=== PATIENT | female | born 1995 | race Caucasian/White ===

== ENCOUNTER → 2017-08-29 | Outpatient (CLI) | payer OTHER ==
[2016-03-26 10:20] VITALS: BP 120/78
[~2017-08-29] MED LIST: NORE-69 PO; SERT25TA PO
--- NOTE | 2017-08-29 16:11 | KCIC ---
MR of the left knee Indication: Left knee pain for 10 days. Medial pain. TECHNIQUE: Routine multiplanar sequences are obtained. Technique: The standard multiplanar sequences are obtained. Findings: Medial meniscus:Intact. Lateral meniscus: Intact. Anterior cruciate ligament: Intact Posterior cruciate ligament: Intact Medial collateral ligament: Intact. Iliotibial band: Intact. Posterolateral structures: Fibular collateral ligament, biceps tendon and popliteus tendon are intact. Extensor mechanism: Intact. Fluid: Small joint effusion. Articular cartilage -patellofemoral joint:Intact -medial compartment:Intact -lateral compartment:Intact Bones: Marrow edema or contusion at the medial tibial plateau. There is a faint area of low signal within the edema, suspicious for an incomplete nondisplaced fracture, with mild overlying cortical buckle. Marrow edema identified in the posterior femoral metaphysis, toward the medial side. Soft tissue: Mild soft tissue edema around the abnormal medial tibial plateau. Impression: 1. Findings compatible with an incomplete nondisplaced fracture at the medial tibial plateau. This could be related to repetitive stress, versus recent macro trauma. 2. Mild bone marrow edema within the posterior medial femoral metaphysis, compatible with marrow contusion or stress reaction. Electronically signed by: Venancio Nuñez MD (08/29/2017 4:08 PM) [facility]
== END | disposition home or self-care (01) ==
LOC: KCIC MRI 15:03
PROVIDERS: ATTEND Physician Assistant
DX: M25.562 Pain in left knee (principal); M25.462 Effusion, left knee; R60.0 Localized edema
CPT/HCPCS: 73721

== ENCOUNTER → 2019-09-08 | Outpatient (CLI) | payer OTHER ==
[~2019-09-08] MED LIST changes: +ALBU2.5V8 INH; +LEVO75TA5 PO; +ONDA4TAB12 PO; +OXYC-325 PO; +PREN-2 PO
--- NOTE | 2019-09-08 12:01 | RAD ---
EXAM: Obstetrics sonogram. HISTORY: Absent heart tone. TECHNIQUE: Sonographic imaging of the pelvis was performed. COMPARISON: None. FINDINGS: There is a single intrauterine gestational sac with pole and yolk sac. The crown-rump length is 6.6 mm, corresponding with a gestational age of 6 weeks and 4 days. No cardiac activity is seen. There is echogenic material within the gestational sac. The ovaries demonstrate normal blood flow. There is a 2.1 cm complex right ovarian cyst, likely hemorrhagic in etiology. There is no pelvic free fluid. IMPRESSION: 1. Single intrauterine fetus with an estimated gestational age of 6 weeks and 4 days and absent cardiac activity. If heart tones were previously documented, this is consistent with intrauterine demise. The possibility of absent cardiac activity due to early gestation is unlikely given presence of abnormal echogenic material within the gestational sac and size of the pole. 2. 2.1 cm complex right ovarian cyst, likely hemorrhagic in etiology. Electronically signed by: Ros Beatty MD (09/08/2019 11:58 AM) [facility]
== END | disposition home or self-care (01) ==
LOC: US 10:51 → MERGE 10:51
PROVIDERS: ATTEND Obstetrics & Gynecology
DX: O34.81 Maternal care for other abnormalities of pelvic organs, first trimester (principal); O76 Abnormality in fetal heart rate and rhythm complicating labor and delivery; N83.291 Other ovarian cyst, right side; Z3A.01 Less than 8 weeks gestation of pregnancy
CPT/HCPCS: 76801; 76817

== ENCOUNTER 2019-09-09 07:45 | Day surgery (SDC) | payer OTHER ==
[~2019-09-09] VITALS: Ht 165.1 cm; Wt 89.0 kg
[~2019-09-09 07:45] MED LIST changes: +HYDROmorphone 2 MG/ML VIAL IV PRN; +IV RINGERS,LACTATED 1000ML 1,000 ML IV SCH; +LIDOCAINE 1% PF 2 ML VIAL. ID PRN; +MORPHINE SULFATE 2 MG/ML VIAL. IV PRN; +ONDANSETRON PF 4 MG/2 ML VIAL. IV PRN; -OXYC-325 PO; +PROCHLORPERAZINE 10 MG/2 ML VIAL. IV PRN; +fentaNYL PF VIAL 100 MCG/2 ML VIAL IV PRN
[2019-09-09] MEDS ORDERED: LIDOCAINE 2% PF 5 ML VIAL. ONE (07:58)
[2019-09-09] MEDS ORDERED: PROPOFOL 20 ML IV ONE (07:58)
[2019-09-09] MEDS ORDERED: fentaNYL PF VIAL 100 MCG/2 ML VIAL ONE ×2 (07:59→09:23)
[2019-09-09] MEDS ORDERED: ceFAZolin 2GM PREMIX 2 GM/50 ML BAG IV ONE (08:00)
[2019-09-09] MEDS ORDERED: VASOPRESSIN 20 UNIT/ML VIAL. ONE (08:44)
[2019-09-09] MEDS ORDERED: OXYTOCIN 10 UNIT/ML VIAL. ONE (08:44)
[2019-09-09] MEDS ORDERED: SILVER NITRATE STICK TP ONE (08:45)
[2019-09-09] MEDS ORDERED: SEVOFLURANE 31 TO 60 MINUTES. IH ONE (08:49)
[2019-09-09] MEDS ORDERED: ONDANSETRON PF 4 MG/2 ML VIAL. ONE (08:49)
[2019-09-09] MEDS ORDERED: DEXAMETHASONE SOD PHOS 4 MG/ML VIAL ONE (08:49)
--- NOTE | 2019-09-09 09:16 | PDOC ---
BRIEF OPERATIVE NOTE Date: Sep 09, 2019 Pre-Op Diagnosis MAB Post-Op Diagnosis Same Procedure Performed Suction D&C Surgeon Dr. Jovel Anesthesia Type: General Blood Loss 150 ml Specimens Obtained POC Findings POC Complications none Operative Note see dictation FLOR JOVEL Jr, MD Sep 09, 2019 09:16
--- NOTE | 2019-09-09 09:18 | DISCH ---
DISCHARGE INSTRUCTIONS Condition on Discharge Condition on Discharge: Stable Activity After Discharge Activity Instructions for Disc: Activity as tolerated Lifting Instructions after Dis: No heavy lifting Driving Instructions after Dis: Do not drive today Diet after Discharge Diet after Discharge: Regular Contacting the DRAravind after DC Call your doctor for: Concerns you may have Follow-Up Follow up with: Dr. Jovel in 1 week FLOR JOVEL Jr, MD Sep 09, 2019 09:18
--- NOTE | 2019-09-09 09:23 | OP ---
DATE OF SURGERY: PREOPERATIVE DIAGNOSIS: Missed . POSTOPERATIVE DIAGNOSIS: Missed . PROCEDURE: Suction D and C. SURGEON: Dr. Jovel. ANESTHESIA: GETA. ESTIMATED BLOOD LOSS: 150 mL. COMPLICATIONS: None. FINDINGS: Products of conception. SUMMARY: A 23-year-old 1 at 8 weeks gestation, was found to have missed that measured at 6 weeks' gestation. She was counseled on the risks, benefits and expectations of suction D and C and desired to proceed. DESCRIPTION OF PROCEDURE: The patient was taken to surgery suite and placed in dorsal lithotomy position. She was prepped with Betadine solution and draped in sterile fashion. After adequate anesthesia, weighted speculum and curved [place] placed vaginally and anterior lip of the cervix grasped with a single tooth tenaculum. The cervix was dilated with Hegar dilators up to size 8. The 7 cm curved suction curette was then passed, which removed products of conception and blood products. Sharp curettage took place until a fine gritty surface was palpated circumferentially. Suction curette was then passed once again and rotated circumferentially removing additional products of conception and blood products. The single tooth tenaculum was removed. Weighted speculum was removed. The patient tolerated the procedure well and was taken to recovery room in stable condition. Sponge and needle count correct x 3. FLOR JOVEL MD DR: TANK/onel JOB#: [id number] / [id number]
[2019-09-09] MEDS ORDERED: OXYC-325 PO (09:28)
[2019-09-09] MEDS: fentaNYL PF VIAL 100 MCG/2 ML VIAL IV PRN ×2 (09:34→09:43)
[2019-09-09 09:40] VITALS: BP 122/59
[2019-09-09] MEDS ORDERED: oxyCODONE/APAP 5/325 1 TAB TABLET PO ONE ×2 (09:45)
--- NOTE | 2019-09-10 17:06 | PATHOLOGY ---
[facility] Accession Number: [id number] . 01 Material submitted: . product of conception - PRODUCTS OF CONCEPTION . 01 Clinical history: . Missed . 02 Diagnosis: Uterine contents, suction D and C: - Products of conception, comprised of immature chorionic villi focally containing nucleated red blood cells, and segments of decidua and secretory endometrium showing focal necrosis and acute inflammation. (JPM:cloth desizing range tender; 09/10/2019) [facility] 09/10/2019 1600 Local . 02 Electronically signed: . Alex Cary MD, Pathologist NPI- [id number] . 01 Gross description: . The specimen is received in formalin, labeled "Ailyn Dwyer, products of conception", are multiple irregular fragments of hemorrhagic and jackman-pink membranous soft tissues measuring 6.0 x 5.5 x 1.4 cm in aggregate. No discrete spongy placental tissue, parts or grapelike cystic structures are present. Representatively submitted in A1-A3. ([facility]; 09/09/2019) [facility] 09/09/2019 1746 Local . 02 Pathologist provided ICD-10: O02.1, O02.89 . 02 CPT . 932182 Specimen Comment: A courtesy copy of this report has been sent to [phone], [phone] Specimen Comment: [id number] Specimen Comment: Report sent to and Performed at: 01 [facility] [address] [place] [address], [place] [id number] MD Jesus Gresham MD Phone: [phone] Performed at: [address] [facility] [address] [place], [place] [id number] MD Alex Cary MD Phone: [phone]
== END 2019-09-09 10:17 | disposition home or self-care (01) ==
LOC: SURG 07:45
PROVIDERS: ATTEND Obstetrics & Gynecology
DX: O02.1 Missed abortion (principal); E03.9 Hypothyroidism, unspecified; F32.9 Major depressive disorder, single episode, unspecified; F41.9 Anxiety disorder, unspecified; E66.9 Obesity, unspecified; Z68.32 Body mass index [BMI] 32.0-32.9, adult; Z3A.08 8 weeks gestation of pregnancy; Z72.89 Other problems related to lifestyle; Z98.890 Other specified postprocedural states
CPT/HCPCS: 59820; A7015; J1100; J2001; J2405; J2704; J3010; 88305; J0696; J2590; J3490

== ENCOUNTER 2020-06-21 01:52 | Emergency (ER) | payer BC, OTHER ==
[~2020-06-21] VITALS: Ht 167.6 cm; Wt 68.2 kg
[~2020-06-21 01:52] MED LIST changes: -HYDROmorphone 2 MG/ML VIAL IV PRN; -IV RINGERS,LACTATED 1000ML 1,000 ML IV SCH; -LIDOCAINE 1% PF 2 ML VIAL. ID PRN; -MORPHINE SULFATE 2 MG/ML VIAL. IV PRN; -ONDANSETRON PF 4 MG/2 ML VIAL. IV PRN; +OXYC-325 PO; -PROCHLORPERAZINE 10 MG/2 ML VIAL. IV PRN; -fentaNYL PF VIAL 100 MCG/2 ML VIAL IV PRN
[2020-06-21] MEDS ORDERED: DEXAMETHASONE SOD PHOS 4 MG/ML VIAL IVP ONE (04:00)
[2020-06-21] MEDS ORDERED: IV NORMAL SALINE 1000ML BAG 1,000 ML IV ONE (04:00)
--- NOTE | 2020-06-21 04:33 | PHYS DOC ---
Past Medical History Past Medical History: No Pertinent History Past Surgical History: No Surgical History Smoking Status: Never Smoker Alcohol Use: None Drug Use: None General Adult EDM: Chief Complaint: MULTIPLE COMPLAINTS HPI: HPI: Patient is a 24 year old female who is 28 week presents with report of pain with deep inspiration with associated cough. Reports she was recently diagnosed with COVID19 on Friday. Denies nausea, vomiting, or diarrhea. Reports some generalized malaise and fever. Denies vaginal discharge or bleeding. Denies leg swelling or calf tenderness. 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 Heart Score: HEART Score for Chest Pain: HEART Score for Chest Pain Response (Comments) Value History Slighlty/Non-Suspicious 0 ECG Normal 0 Age < 45 0 Risk Factors No Risk Factors 0 Total 0 Current Medications: Current Medications Medications (Trade) Dose Ordered Sig/Priscila Start Time Stop Time Status Last Admin Dose Admin Dexamethasone Sodium Phosphate (Decadron) 10 mg 1X ONCE 06/21/20 04:00 06/21/20 04:01 DC 06/21/20 04:15 10 MG Sodium Chloride 1,000 ml @ 1,000 mls/hr 1X ONCE 06/21/20 04:00 06/21/20 04:59 06/21/20 03:47 1,000 MLS/HR Allergies: Allergies: Allergies Coded Allergies Type Severity Reaction Last Updated Verified moxifloxacin Allergy Intermediate Unknown 03/26/16 Yes Physical Exam: PE: Constitutional: Well developed, well nourished, no acute distress, non-toxic appearance HENT: Normocephalic, atraumatic Eyes: Conjunctiva normal, no discharge Neck: Normal range of motion, supple Lungs & Thorax: Equal chest rise and fall, no respiratory distress Abdomen: Soft, gravid, no tenderness Skin: Warm, dry, no erythema, no rash Extremities: No tenderness, ROM intact, no edema Neurologic: Alert and oriented X 3, no focal deficits noted Psychologic: Affect normal, judgement normal EKG: EKG: @[address], no ST elevation Radiology/Procedures: Radiology/Procedures: [] Course & Med Decision Making: Course & Med Decision Making Patient presents at 28 week gestation with report of SOA, pleuritic pain, and cough. hx of recent diagnosis of COVID19 on Friday. COVID precautions in place. Denies vaginal bleeding or discharge. Denies leg swelling or calf tenderness. Sats stable. EKG stable. heart tones normal. Symptomatic dexamethasone provided. Patient does not appear to have signs of DVT or PE. Patient stable for discharge home with outpatient follow-up with PCP/OB. Discussed findings and plan with patient, who acknowledges understanding and agreement. COVID-19 CRITERIA: The patient was evaluated during the global COVID-19 pand emic, and that diagnosis was suspected/considered upon their initial presentation. Their evaluation, treatment and testing was consistent with current guidelines for patients who present with complaints or symptoms that may be related to COVID-19. Dragon Disclaimer: Dragon Disclaimer: This electronic medical record was generated, in whole or in part, using a voice recognition dictation system. Departure Departure Impression: Primary Impression: COVID-19 Additional Impression: Qualified Codes: Z3A.25 - 25 weeks gestation of Disposition: 01 HOME, SELF-CARE Condition: STABLE Referrals: COTY ROSAS MD (PCP) Patient Instructions: ABCs of Additional Instructions: You have been tested for or diagnosed with COVID-19. It is an infection caused by a new type of coronavirus. COVID-19 will cause cold-like or mild flu symptoms in most. It can cause more severe symptoms like problems breathing in some. There is no treatment for COVID-19. The body will clear the infection over time. Self-care will help to ease discomfort. Steps to Take: Self-Care Rest as needed. Healthy habits may help you feel better. Steps include: Choose healthy foods including fruits and vegetables. Drink water throughout the day. Get plenty of sleep each night. If you smoke, try to quit. It may ease breathing. Avoid alcohol. Keep Others Healthy The virus can spread to others. Droplets are released every time you sneeze or cough. The droplets can get into the mouth, nose, or eyes of people near you and lead to infection. To lower the chances of spreading COVID-19 to others: Stay at home until your doctor has said it is safe to leave. If you tested positive this will mean staying isolated until both of the following are true: At least 7 days have passed since the start of illness. You are free of fever for at least 72 hours without the use of medicine. During this time: - Avoid public areas, events, or transportation. Do not return to work or school until your doctor has said it is safe to do so. - Call ahead if you need to go to a medical center. Let them know you may have COVID-19. It will help them guide you where to go. They may also ask you to wear a facemask when you come to the office. - If you call for emergency medical services, let them know you may have COVID- 19. While at home: - Try to avoid close contact with others. Stay about 6 feet away. - If possible, spend most of your time in a separate room from others. - Use a face mask if you will be in close contact with others such as sharing a room or vehicle. - Have someone wipe down common surfaces in the home. Use household wild oyster harvester every day on areas like doorknobs, counters, or sinks. - Cough or sneeze into a tissue. Throw the tissue away right after use. If a tissue is not available, cough or sneeze into your elbow. - Wash your hands often. Wash them after sneezing or coughing. Use soap and water and wash for at least 20 seconds. Alcohol based hand fur dry cleaner can be used if soap and water is not available. - Do not prepare food for others. Avoid sharing personal items like forks, spoons, or toothbrushes. - Avoid close contact with pets while you are sick. There is no evidence of the virus passing to pets. This is a safety step until more is known about this virus. Isolation can be frustrating. Social interaction can help. Keep in touch with friends and family through phone and tech options. You can still interact with others in your home, just keep a safe distance of about 6 feet. Follow-up: Your doctors office will check in with you to see if there are any changes in your health. You may be asked to keep track of symptoms to share with them. They will also let you know when you are clear to be in public again. Problems to Look Out For: Contact your doctor if your recovery is not going as you expect. Get emergency care if you have problems such as: - Trouble breathing - Nonstop chest pain or pressure - Changes in awareness, confusion, or problems waking - Lips or face have bluish color - Worsening of symptoms If you think you have an emergency, call for emergency medical services right away. As taken from [facility] Justicifation of Admission Dx: Justifications for Admission: Justification of Admission Dx: N/A COVID-19 Assessment: COVID-19 Patient Risks: Age 65 or older: No Sign of co-morbidity: No Exp to person + for COVID: Yes Exp to PUI: No Travel from affected area: No Lower respiratory symptoms: Yes Fever: Yes Other: Yes (Positive test on Friday) PPE Use: Full PPE with N95 mask or PAPR: Yes ANTWON HOPPER DO Jun 21, 2020 04:33
[2020-06-21 04:47] VITALS: BP 117/69
--- NOTE | 2020-06-22 10:15 | EKG ---
[facility] [address] [place] [address] Test Date: 2020-06-21 Test Time: 03:04:03 Pat Name: ADITYA CARTER Department: Room: Gender: F Radiologic Technologist: : 1995 Requested By: ANTWON HOPPER Order Number: [id number] Reading MD: Measurements Intervals [place] Rate: 116 P: 56 NV: 120 QRS: 52 QRSD: 70 T: 15 QT: 314 QTc: 436 Interpretive Statements SINUS TACHYCARDIA LEFT ATRIAL ABNORMALITY ABNORMAL ECG RI6.02 No previous ECG available for comparison
== END 2020-06-21 04:47 | disposition home or self-care (01) ==
LOC: ER 01:52
DX: O98.512 Other viral diseases complicating pregnancy, second trimester (principal); U07.1 COVID-19; Z3A.25 25 weeks gestation of pregnancy; Z88.1 Allergy status to other antibiotic agents
CPT/HCPCS: 93005; 96361; 96374; 99285; J1100; J7030